=== PATIENT | female | born 1980 | race Caucasian/White ===

== ENCOUNTER 2017-07-31 18:35 | Emergency (ER) | payer OTHER ==
[2017-07-31] MEDS: LIDOCAINE/MYLANTA 40 ML BTL PO (21:13)
[2017-07-31] MEDS: PANTOPRAZOLE (EC) 40 MG TAB PO (21:13)
[2017-07-31] MEDS: KETOROLAC 15 MG INJ IM (21:14)
[2017-07-31 22:18] LABS: ADD UMIC NO; UR ASCORBIC ACID NEGATIVE (NEGATIVE); UR BILIRUBIN (Dip) NEGATIVE (NEGATIVE); UR BLOOD (Dip) NEGATIVE (NEGATIVE); UR CLARITY CLEAR (CLEAR); UR COLOR YELLOW (YELLOW); UR GLUCOSE (Dip) NEGATIVE (NEGATIVE); UR KETONES (Dip) NEGATIVE (NEGATIVE); UR LEUKOCYTE ESTERASE (Dip) NEGATIVE Leu/ul (NEGATIVE); UR NITRITE (Dip) NEGATIVE (NEGATIVE); UR SPECIFIC GRAVITY (Dip) 1.012 (1.003-1.030); UR TOTAL PROTEIN (Dip) NEGATIVE (NEGATIVE); UR UROBILINOGEN (Dip) NEGATIVE (NEGATIVE)
== END 2017-07-31 23:03 | disposition home or self-care (01) ==
LOC: FTE 18:35
DX: R10.13 Epigastric pain (principal)
CPT/HCPCS: 81003; 96372; 99284-25